=== PATIENT | female | born 1975 | race Caucasian/White ===

== ENCOUNTER 2021-01-28 14:15 | Emergency (ER) | payer OTHER, SELFPAY ==
[2021-01-28 14:23] VITALS: BP 114/74; PULSE 91; RESP 16; TEMP 36.7; O2SAT 100; BMI 21.7
--- NOTE | 2021-01-28 14:32 | XR_ITS ---
WS: [id number] Exam: XR soft tissue neck [id number] Date/Time of Exam: 01/28/2021 2:32 PM Reason For Exam: pain/trouble swallowing There appears to be mild widening of the prevertebral soft tissues from C4 to C7. The airway is paten t. The epiglottis is normal in appearance. Bony structures are intact. XR/XR soft tissue neck [id number] IMPRESSION: 1. Mild prevertebral soft tissue widening from C4 to C7. 2. The airway appears to be patent. Unremarkable bony elements.
--- NOTE | 2021-01-28 14:33 | ED_ITS ---
HPI - General Adult General: Chief complaint: Airway/Esophagus Foreign Body Stated complaint: Diff Breathing and throat swollen after yelling Time Seen by Provider: 01/28/21 14:33 Source: patient Mode of arrival: wheelchair Limitations: no limitations History of Present Illness: HPI narrative: Patient is a 45-year-old female presents to ED today with a complaint of anterior throat/neck pain, trouble swallowing, and trouble breathing. Patient states a few weeks ago she coughed really hard and heard a pop in her neck and apparently has had symptoms since that time. She has not tried to follow-up with PCP. Patient has continued to eat and drink since then. Patient very anxious in triage. [facility] Female Reproductive History: Date of last menstrual period: 01/21/21 Physical Exam Const: COMMON NORMALS: patient oriented x3, no limitations and alert GENERAL APPEARANCE: cooperative and anxious ORIENTATION/CONSCIOUSNESS: Yes awake, Yes oriented to person, Yes oriented to place and Yes oriented to time Neck/C-Spine: GENERAL: Yes normal visual inspection, Yes trachea midline, No anterior neck swelling, No tracheal deviation and No submandibular swelling Neuro: COMMON NORMALS: patient oriented x3 SENSORIUM/ORIENTATION: Yes alert, Yes oriented to person, Yes oriented to place and Yes oriented to time Course Vital Signs: Vital signs: Vital Signs Temperature 98.1 F 01/28/21 14:23 Pulse Rate 91 01/28/21 14:23 Respiratory Rate 16 01/28/21 14:23 Blood Pressure 114/74 01/28/21 14:23 Pulse Oximetry 100 01/28/21 14:23 MDM - General Adult MDM Narrative: Medical decision making narrative: Brief history and physical exam was performed as part of the triage process. Due to current ED wait time patient will be placed in waiting room until a room becomes available. Explained to patient he/she will be seen in order of severity. Patient is currently safe to wait in the waiting room until we can get them placed. Patient informed that if condition worsens at any time to please let the front desk agent know. Patient apparently eloped from the waiting room. I did not get a chance to speak to patient prior to her leaving. Discharge Plan Discharge Patient Disposition: Left Against Medical Advice Coding Level of Care Code ED [employer] for [facility] Fwd Exam Expanded Problem Focused
== END 2021-01-28 17:30 | disposition left against medical advice (07) ==
PROVIDERS: Emergency Provider Family Medicine
DX: Z53.21 Procedure and treatment not carried out due to patient leaving prior to being seen by health care provider (principal); R13.10 Dysphagia, unspecified
CPT/HCPCS: 70360; 99282